=== PATIENT | male | born 1980 | race Caucasian/White ===

== ENCOUNTER 2016-10-14 19:24 | Emergency (ER) | payer SELFPAY ==
[2016-10-14 19:32] VITALS: BP 149/93
[2016-10-14] MEDS ORDERED: Albuterol/Ipratropium NEB.SOL* Albuterol 2.5 MG/Ipratropium 0.5 MG 3 ML INH ONE (20:25)
--- NOTE | 2016-10-14 21:12 | RAD ---
HISTORY: Productive cough COMPARISONS: None VIEWS: 2: Frontal dual-energy and lateral views of the chest. FINDINGS: CARDIOMEDIASTINAL SILHOUETTE: The cardiomediastinal silhouette is normal. DEX: The dex are normal. PLEURA: The costophrenic angles are sharp. No pleural abnormalities are noted. LUNG PARENCHYMA: The lungs are clear. ABDOMEN: The upper abdomen is clear. There is no subphrenic gas. BONES AND SOFT TISSUES: No bone or soft tissue abnormalities are noted. OTHER: None. IMPRESSION: NO ACTIVE CARDIOPULMONARY DISEASE.
[2016-10-14] MEDS ORDERED: Ibuprofen TAB* 800 MG PO ONE (21:32)
--- NOTE | 2016-10-14 22:10 | ED ---
HPI Cardiac - HPI Summary HPI Summary: Pt here w/ cough x 2 weeks. He developed URI sx over the past few days. Cough has been progressively worsening - associated w/ tight chest, trouble getting a deep breath as chest was tight last night - better today, but still coughing and hurts. He now has fever x 3 days along w/ DEAN, nasal congestion, ST. Has had vomiting from coughing so much after drinking alot of fluids. Loose stools one day last week -better since. Mild lower ab discomfort. Denies neck pain, rash, joint aches - just has generalized fatigue. Has been very stressed with work and pushing through illness. Smokes cigarettes and sometimes marijuana. No h/o asthma, pneumonia. - History of Current Complaint Chief Complaint: EDFluSymptoms Stated Complaint: FLU LIKE SYMPTOMS Time Seen by Provider: 10/14/16 19:40 Hx Obtained From: Patient Pain Intensity: 5 - Allergy/Home Medications Allergies/Adverse Reactions: Allergies Allergy/AdvReac Type Severity Reaction Status Date / Time No Known Allergies Allergy Verified 04/06/16 11:30 PMH/Surg Hx/FS Hx/Imm Hx Previously Healthy: Yes Endocrine/Hematology History: Denies: Hx Diabetes, Autoimmune Disease Cardiovascular History: Denies: Hx Congenital Heart Disease Respiratory History: Denies: Hx Asthma Infectious Disease History: No Infectious Disease History: Denies: Traveled Outside the [place] in Last 30 Days - Family History Known Family History: Positive: None Family History: Brother has Crohn's disease. Grandfather with colon cancer. - Social History Occupation: Employed Full-time Lives: With Family Alcohol Use: Occasionally Substance Use Type: Reports: Marijuana - occasionally Hx Tobacco Use: Yes Smoking Status (MU): Current Every Day Smoker Amount Used/How Often: Just started recently Review of Systems Constitutional: Other - see HPI Eyes: Negative Negative: Photophobia, Blurred Vision, Diplopia, Drainage, Erythema ENT: Other - see HPI Positive: Sore Throat, Ear Ache, Nasal Discharge. Negative: Dental Pain Negative: Chest Pain Positive: Cough - see HPI Gastrointestinal: Other - see HPI Positive: no symptoms reported Musculoskeletal: Negative Skin: Negative Negative: Rash Positive: Headache. Negative: Weakness, Paresthesia, Numbness, Syncope, Slurred Speech Psychological: Normal All Other Systems Reviewed And Are Negative: Yes Physical Exam Triage Information Reviewed: Yes Vital Signs On Initial Exam: Initial Vitals Temp Pulse Resp BP Pulse Ox 98.8 F 93 18 149/93 98 10/14/16 19:26 10/14/16 19:26 10/14/16 19:26 10/14/16 19:26 10/14/16 19:26 Vital Signs Reviewed: Yes Appearance: Positive: Ill-Appearing - appears fatigued w/ mild illness - alert, answering questions w/o difficulty Skin: Positive: Warm - feverish - no rash observed Head/Face: Positive: Normal Head/Face Inspection - sinuses NTTP Eyes: Positive: Normal, EOMI, Conjunctiva Clear. Negative: Conjunctiva Inflammed, Discharge ENT: Positive: Hearing grossly normal, Pharyngeal erythema, Nasal congestion, TMs normal, Other - EAC's w/ mild erythema - no d/c. Negative: Nasal drainage, Tonsillar swelling, Tonsillar exudate Neck: Positive: Supple, Nontender, Enlarged Nodes @ Respiratory/Lung Sounds: Positive: Clear to Auscultation, Breath Sounds Present , Wheezes - very mild. Negative: Decreased Breath Sounds, Rales, Rhonchi, Stridor, Tracheal Deviation Cardiovascular: Positive: Normal, RRR, Pulses are Symmetrical in both Upper and Lower Extremities, S1, S2. Negative: Murmur, Rub Abdomen Description: Positive: No Organomegaly, Soft, Other: - mild TTP over lower ab in general - no rebounding - "sore" Bowel Sounds: Positive: Present Musculoskeletal: Positive: Normal, Strength/ROM Intact Neurological: Positive: Normal, Sensory/Motor Intact, Alert, Oriented to Person Place, Time, CN Intact II-III Psychiatric: Positive: Normal - Erica Coma Scale Coma Scale Total: 15 Diagnostics - Vital Signs Vital Signs Temp Pulse Resp BP Pulse Ox 10/14/16 19:26 98.8 F 93 18 149/93 98 - Laboratory Lab Statement: Any lab studies that have been ordered have been reviewed, and results considered in the medical decision making process. Re-Evaluation - Re-Evaluation First Eval Change: Improved - chest/breathing sx improved s/p duoneb Disposition - Course Course Of Treatment: Pt presents w/ URI sx and cough. CXR neg for pneumonia. H/ o working through illness - suspect he has bronchitis from lack of self care during a viral URI and continues to smoke. Improved w/ duoneb so will continue albuterol at home and zitrhomax to cover resp organisms as his immune system sounds to be struggling d/t lifestyle. Encouraged fluids, rest and f/u w/ PCP if sx persist. Danger s/sx of when to return to ED reviewed. - Diagnoses Provider Diagnoses: Bronchitis, URI (upper respiratory infection) Discharge - Discharge Plan Condition: Stable Disposition: HOME Prescriptions: Albuterol HFA INHALER* [Ventolin HFA Inhaler*] 2 puff INH Q4H PRN #1 mdi PRN Reason: Cough Azithromycin TAB* [Zithromax TAB (Z-NINO) 250 mg #6 tabs] 2 tab PO .TODAY, THEN 1 DAILY #1 nino Patient Education Materials: Upper Respiratory Infection (ED), Acute Bronchitis (ED) Forms: *Work Release Referrals: [facility]ERR[facility] [Outside] No Primary Care Phys,NOPCP [Primary Care Provider] - Additional Instructions: Rest, fluids, ibuprofen alternating with acetaminophen for fever, pain. You may also try: Nasal wash (netti pot) & throat gargle 2 x day with 8 ounces of warm water + 1/ 4 teaspoon of salt Drink 60+ ounces of water daily Sleep 8+ hours per night Avoid Dairy and sugar Hot herbal/decaf tea with lemon & honey Chicken broth (preferably organic, free range chicken) Humidifier in house, but especially near bed at night Try a facial steam with or without eucalyptus essential oil Cough drops Consider taking Vitamin D3 5,000iu and Vitamin C 1,000mg every day during illness Start probiotics in between and after completion of antibiotics (ie. Yogurt and/ or capsules of L. acidophilus, L. bifidus, L. casei, etc - make sure to get these from the refrigerated food section as they are live and active cultures) Follow-up with PCP this week if symptoms persist. If symptoms worsen, return to ED.
== END 2016-10-14 21:52 | disposition home or self-care (01) ==
LOC: ED 19:24
DX: J40 Bronchitis, not specified as acute or chronic (principal); J06.9 Acute upper respiratory infection, unspecified; J02.9 Acute pharyngitis, unspecified; H53.8 Other visual disturbances; R51 Headache
CPT/HCPCS: 71020; 99283; A9270-GY

== ENCOUNTER 2017-12-26 19:08 | Emergency (ER) | payer SELFPAY ==
--- NOTE | 2017-12-26 19:28 | ED ---
Altered Mental Status - HPI Summary HPI Summary: This is scribe Jesus Manuel Green documenting for attending Jhon Stern MD. This patient is a 37 year old M BIBA to [facility] with a chief complaint of a possible heroin overdose since earlier today. The patient rates the pain 4/10 in severity. Patient reports chronic pain in his back and knee, sciatica bilaterally, a plate in my arm that hurts constantly, a splint in his forehead , and broken noses on multiple occasions. He was found at the bottom of a staircase by his family after the overdose, barely breathing. Patient was given Narcan nasally. I, Dr. Stern, personally performed the services described in this documentation as scribed in my presence, and it is both accurate and complete. - History Of Current Complaint Chief Complaint: EDAltMentalStatus Stated Complaint: POSS OVERDOSE Time Seen by Provider: 12/26/17 19:11 Hx Obtained From: Patient Onset/Duration: Still Present Severity Initially: Severe Severity Currently: Mild Aggravating Factor(s): Nothing Alleviating Factor(s): Nothing - Allergies/Home Medications Allergies/Adverse Reactions: Allergies Allergy/AdvReac Type Severity Reaction Status Date / Time No Known Allergies Allergy Verified 04/06/16 11:30 Home Medications: Home Medications NK [No Home Medications Reported] 12/26/17 [History Confirmed 12/26/17] PMH/Surg Hx/FS Hx/Imm Hx Endocrine/Hematology History: Denies: Hx Diabetes Cardiovascular History: Denies: Hx Congenital Heart Disease Respiratory History: Denies: Hx Asthma Infectious Disease History: No Infectious Disease History: Denies: Traveled Outside the [place] in Last 30 Days - Family History Known Family History: Positive: Cardiac Disease, Hypertension, Diabetes, Other - Cancer Family History: Brother has Crohn's disease. Grandfather with colon cancer. - Social History Alcohol Use: Occasionally Substance Use Type: Reports: Marijuana Hx Tobacco Use: Yes Smoking Status (MU): Current Every Day Smoker Amount Used/How Often: Just started recently Review of Systems Negative: Fever Positive: Other - Broken noses from before Positive: Other - Chronic back pain, chronic knee pain, sciatica bilaterally, a plate in my arm that hurts constantly" All Other Systems Reviewed And Are Negative: Yes Physical Exam - Summary Physical Exam Summary: Appearance: Well-appearing, Well-nourished, lying in bed comfortable Skin: Warm, dry, no obvious rash Eyes: sclera anicteric, no conjunctival pallor ENT: mucous membranes moist Neck: deferred Respiratory: No signs of respiratory distress Cardiovascular: Appears well perfused, pulses are nml Abdomen: deferred Musculoskeletal: Moving all 4 extremities without obvious discomfort Neurological: Awake and alert, mentation is normal, speech is fluent and appropriate Psychiatric: affect is normal, does not appear anxious or depressed Triage Information Reviewed: Yes Vital Signs On Initial Exam: Initial Vitals Temp Pulse Resp BP Pulse Ox 98.6 F 116 16 165/115 94 12/26/17 19:10 12/26/17 19:10 12/26/17 19:10 12/26/17 19:10 12/26/17 19:10 Vital Signs Reviewed: Yes Diagnostics - Vital Signs Vital Signs Temp Pulse Resp BP Pulse Ox 12/26/17 19:13 115 19 95 12/26/17 19:10 98.6 F 116 16 165/115 94 - Laboratory Lab Statement: Any lab studies that have been ordered have been reviewed, and results considered in the medical decision making process. Re-Evaluation - Re-Evaluation First Eval Re-Evaluation Time: 19:57 Comment: RN caring for the patient tells me that the patient is now suicidal, and will need a mental health evaluation. Appropriate orders are put in. Disposition will be dependent on mental health evaluation. Altered Mental Statu Course/Dx - Course Course Of Treatment: I attempted to engage the patient in a discussion to work on getting into the REACH clinic, pre-exposure prophylaxis, clean needles, etc. However the patient was not interested in this, continually complaining about his chronic pain, swearing at the copy holder, etc. After several minutes of this, I terminated the interview. - Diagnoses Provider Diagnoses: Heroin overdose Discharge - Sign-Out/Discharge Documenting (check all that apply): Patient Departure - Discharge Plan Condition: Good Disposition: HOME Patient Education Materials: Narcotic Abuse (ED), Opioid Overdose (ED) Referrals: [facility] [Outside] No Primary Care Phys,NOPCP [Primary Care Provider] - - Billing Disposition and Condition Condition: GOOD Disposition: Home
[2017-12-26 20:10] LABS: ABS Basophils 0 10^3/ul (0-0.2); ABS Eosinophils 0.1 10^3/ul (0-0.6); ABS Monocytes 0.3 10^3/ul (0-0.8); ABS Neutrophils 5.2 10^3/ul (1.5-7.7); ABS Nucleated RBC 0 10^3/ul; Eosinophil % 1.3 % (0-6); Hematocrit 47 % (42-52); Hemoglobin 16.1 g/dl (14.0-18.0); Lymphocyte % 14.6 % (25-47); Mean Corpuscular HGB Conc 34 g/dl (31-36); Mean Corpuscular Hemoglobin 30 pg (27-31); Mean Corpuscular Volume 89 fL (80-94); Mean Platelet Volume 8.7 um3 (7.4-10.4); Nucleated Red Blood Cells % 0.2; Platelet Count 161 10^3/ul (150-450); Red Blood Count 5.28 10^6/ul (4.00-5.40); Red Cell Distribution Width 14 % (10.5-15); White Blood Count 6.6 10^3/ul (3.5-10.8)
[2017-12-26 20:38] LABS: EGFR Non-African American 86.1 (>60)
[2017-12-26] MEDS ORDERED: diPHENhydraMINE IV* 50 MG/ML 1 ml VIAL (BENADRYL) ONE (21:21)
[2017-12-26] MEDS ORDERED: Ketorolac INJ* 15 MG/ML 1 ML VIAL ONE (21:21)
[2017-12-27] MEDS ORDERED: Lidocaine PATCH 5%* 1 PATCH TRANSDERM SCH (01:00)
[2017-12-27 02:12] VITALS: BP 124/78
--- NOTE | 2017-12-27 11:01 | ED ---
Progress - Progress Note Progress Note: Patient's labs revealed positive hepatitis C results. Attempted to contact patient however his voice mail box has not been set up yet. Called his person to notify, Jeana Gallegos, his sister. She reports she is on her way from [place] to pick her brother up here in [place] in an effort to provide better support in light of recent events with his heroine OD. Did not give her lab results on the phone just now however she and her brother will call back later today when she has made her way here to [place]. She is aware these results are important and should be discussed sooner than later. States she will call around 15:45 this afternoon. Gave her contact information for the ED. - Consult/PCP Time Called: 00:20 Re-Evaluation - Re-Evaluation First Eval Re-Evaluation Time: 19:57 Comment: RN caring for the patient tells me that the patient is now suicidal, and will need a mental health evaluation. Appropriate orders are put in. Disposition will be dependent on mental health evaluation. Course/Dx - Course Course Of Treatment: I attempted to engage the patient in a discussion to work on getting into the REACH clinic, pre-exposure prophylaxis, clean needles, etc. However the patient was not interested in this, continually complaining about his chronic pain, swearing at the hand coper, etc. After several minutes of this, I terminated the interview. - Diagnoses Provider Diagnoses: Heroin overdose Discharge - Sign-Out/Discharge Documenting (check all that apply): Post-Discharge Follow Up - Discharge Plan Condition: Good Disposition: HOME Patient Education Materials: Narcotic Abuse (ED), Opioid Overdose (ED) Referrals: [facility] [Outside] Korin VALERO,Shamar Carrillo [Medical Doctor] - No Primary Care Phys,NOPCP [Primary Care Provider] - Additional Instructions: Per completion of a mental health evaluation, you are cleared for release and do not require inpatient psychiatric hospitalization at this time. Please go to nearest emergency room or call 911 if safety concerns arise or condition worsens. Recommend that you contact [address] for walk in appointment (prior to 2:30 PM) [phone] Other Important Phone Numbers: [facility]........[phone] Suicide Prevention and Crisis Services........................[phone] [place] Suicide Prevention Lifeline............................111-100-MDEU ( 4536) Alcoholics Anonymous...............................................[phone] [facility]..............[phone] [place] [employer]..............................................[phone] - [facility] Disposition and Condition Condition: GOOD Disposition: Home
[2017-12-27] MEDS ORDERED: Lidocaine Patch REMOVE* 1 NOTE MISC SCH (21:00)
== END 2017-12-27 01:55 | disposition home or self-care (01) ==
LOC: ED 19:08
DX: T40.1X1A Poisoning by heroin, accidental (unintentional), initial encounter (principal); Y92.9 Unspecified place or not applicable; Z72.0 Tobacco use
CPT/HCPCS: 36415; 80053; 80320; 80329; 84443; 85025; 86703; 86803; 87340; 99285; G0480; J1200; J1885

== ENCOUNTER 2018-02-07 21:23 | Inpatient (IN) | payer SELFPAY ==
[~2018-02-07 21:23] MED LIST: Etomidate* 2 MG/ML 20 ML VIAL (40 MG) ONE; Midazolam* 1 MG/ML 10 ML VIAL (10 MG) ONE
[2018-02-07] MEDS ORDERED: Succinylcholine* 20 MG/ML 10 ML VIAL ONE (21:29)
[2018-02-07] MEDS ORDERED: Succinylcholine* 20 MG/ML 10 ML VIAL IV ONE (21:34)
[2018-02-07] MEDS ORDERED: Etomidate* 2 MG/ML 10 ML VIAL IV ONE (21:34)
[2018-02-07] MEDS ORDERED: Midazolam IV for DRIP* 100 MG in NS 0.9% 100 ML* 80 ML IV SCH (21:35)
[2018-02-07] MEDS ORDERED: Midazolam BAG 1 MG/ML* 100 MG/100 ML BAG IV ONE (21:35)
--- NOTE | 2018-02-07 21:42 | ED ---
Altered Mental Status - HPI Summary HPI Summary: This patient is a 38 year old male BIBA to [facility] with a chief complaint of AMS, and vomiting since arrival by EMS. Patient was found by a female creative resource manager at home unresponsive. The downtime of patient is unknown. As he has a history of heroin abuse, patient was given 6.4g of narcan with no improvement. EMS states that during transit, his pupils were dilated and minimally reactive and was hypertensive, tachycardic. Patient was unable to vocalize and only grunted and groaned. - History Of Current Complaint Chief Complaint: EDAltMentalStatus Stated Complaint: POSS OVERDOSE Time Seen by Provider: 02/07/18 21:33 Hx Obtained From: EMS Hx From Patient Unobtainable Due To: Altered Mental Status Onset/Duration: Still Present Timing: Constant Severity Currently: Moderate Character: Lethargy Aggravating Factor(s): Nothing Alleviating Factor(s): Nothing Associated Signs And Symptoms: Positive: Vomiting - Allergies/Home Medications Allergies/Adverse Reactions: Allergies Allergy/AdvReac Type Severity Reaction Status Date / Time No Known Allergies Allergy Verified 04/06/16 11:30 PMH/Surg Hx/FS Hx/Imm Hx Previously Healthy: Yes - Level 5 Caveat: AMS Endocrine/Hematology History: Denies: Hx Diabetes Cardiovascular History: Denies: Hx Congenital Heart Disease Respiratory History: Denies: Hx Asthma - Family History Known Family History: Positive: Cardiac Disease, Hypertension, Diabetes, Other - Cancer Family History: Brother has Crohn's disease. Grandfather with colon cancer. - Social History Alcohol Use: Occasionally Hx Substance Use: Yes Substance Use Type: Reports: Marijuana Hx Tobacco Use: Yes Smoking Status (MU): Current Every Day Smoker Amount Used/How Often: Just started recently Review of Systems Negative: Fever Positive: Palpitations Positive: Vomiting All Other Systems Reviewed And Are Negative: No - Comments Additional Review of Systems Comments: Level 5 Caveat: AMS Physical Exam Triage Information Reviewed: No Vital Signs Reviewed: No Completion Of Physical Exam Limited Due To: Altered Mental Status, Level 5 Procedures - Intubation Time of Intubation: 21:30 - Patient was vomiting and suction prior intubation. No emesis around cords Intubation Method: orotracheal Tube Size (cm): 8.0 Medications: Succinylcholine Breath Sounds after Intubation: equal Intubation Complications: no complications Post Intubation Xray: Yes Progress/Xray Impression: NAD, ET tube in position Diagnostics - Laboratory Result Diagrams: 02/07/18 21:49 02/07/18 21:49 Lab Statement: Any lab studies that have been ordered have been reviewed, and results considered in the medical decision making process. - Radiology CXR Xray Interpretation: No Acute Changes - CXR reveals NAD, ET tube in position. ED physician has reviewed this radiology report. Radiology Interpretation Completed By: ED Physician - EKG 2152 Cardiac Rate: Tachycardia EKG Rhythm: Sinus Tachycardia - 116 BPM EKG Interpretation: Sinus Tachycardia (116 BPM), ST early repolarization Altered Mental Statu Course/Dx - Course Assessment/Plan: This patient is a 38 year old male BIBA to [facility] with a chief complaint of AMS, and vomiting since arrival by EMS. Patient was found by a female creative resource manager at home unresponsive. An EKG, taken 2152, reveals Sinus Tachycardia (116 BPM), ST early repolarization.CXR reveals, per radiologist, NAD , ET tube in position. ED physician has reviewed this radiology report. Bloodwork Obtained. Urinalysis Obtained. In the ED course the patient was given Etomidate 20mg IV, NS 0.9% bolus IV, Succinylcholine 100mg IV. We discussed patient care with Yonny Savage (Hospitalist) and they recommended admitting patient to ICU. Patient will be admitted to ICU. The patient is agreeable with this plan. - Diagnoses Differential Diagnosis/HQI/PQRI: CVA, Hypoglycemia, Hypoxia, Intoxication, Intracranial Bleed, Overdose, Postictal State, Sepsis Provider Diagnoses: Altered mental status, Vomiting, Drug ingestion, Alcohol intoxication - Provider Notifications Discussed Care Of Patient With: Yonny Savage - Hospitalist Time Discussed With Above Provider: 21:45 - We discussed patient care with Yonny Savage (Hospitalist) and they recommended admitting patient to ICU. Instructed by Provider To: Other - admit to ICU - Critical Care Time Critical Care Time: 30-74 min - Patient with acutely altered mental status requiring airway management, IV fluids, and heavy sedation. Discharge - Sign-Out/Discharge Documenting (check all that apply): Patient Departure - Discharge Plan Condition: Critical Disposition: ADMITTED TO [facility] Referrals: No Primary Care Phys,NOPCP [Primary Care Provider] - - Attestation Statements Document Initiated by Scribe: Yes Documenting Scribe: Aniyah Miller Provider For Whom Scribe is Documenting (Include Credential): Jhon Stern MD Scribe Attestation: Aniyah Frausto, scribed for Jhon Stern MD on 02/08/18 at 0004.
[2018-02-07] MEDS: NS 0.9% 1000 ML* 2,000 ML IV ONE ×3 (21:55→22:55)
[2018-02-07 21:57] LABS: ABS Basophils 0 10^3/ul (0-0.2); ABS Eosinophils 0.2 10^3/ul (0-0.6); ABS Lymphocytes 4.7 10^3/ul (1.0-4.8); ABS Neutrophils 4.8 10^3/ul (1.5-7.7); ABS Nucleated RBC 0 10^3/ul; Hematocrit 48 % (42-52); Hemoglobin 16.3 g/dl (14.0-18.0); Lymphocyte % 43.4 % (25-47); Mean Corpuscular HGB Conc 34 g/dl (31-36); Mean Corpuscular Hemoglobin 31 pg (27-31); Mean Corpuscular Volume 91 fL (80-94); Mean Platelet Volume 8.3 um3 (7.4-10.4); Nucleated Red Blood Cells % 0.2; Platelet Count 199 10^3/ul (150-450); Red Blood Count 5.28 10^6/ul (4.00-5.40); Red Cell Distribution Width 16 % (10.5-15); White Blood Count 10.8 10^3/ul (3.5-10.8)
[2018-02-07 22:13] LABS: EGFR Non-African American 92.1 (>60)
[2018-02-07 22:14] LABS: Urine Appearance Cloudy; Urine Blood 1+ (Negative); Urine Color Yellow; Urine Ketones Negative (Negative); Urine Protein 2+(100 mg/dL) (Negative); Urine Red Blood Cell 3+(>10/hpf) (Absent); Urine Specific Gravity 1.011 (1.010-1.030); Urine Urobilinogen Negative (Negative); Urine White Blood Cell Trace(0-5/hpf) (Absent)
--- NOTE | 2018-02-07 22:28 | RAD ---
EXAM: CT Head Without Intravenous Contrast CLINICAL HISTORY: 38 years old, male; Signs and symptoms; Other: Possible overdose/ams; Additional info: Altered mental status TECHNIQUE: Axial computed tomography images of the head/brain without intravenous contrast. All CT scans at this facility use at least one of these dose optimization techniques: automated exposure control; mA and/or kV adjustment per patient size (includes targeted exams where dose is matched to clinical indication); or iterative reconstruction. COMPARISON: No relevant prior studies available. FINDINGS: Brain: No evidence of acute intracranial hemorrhage. No intracranial mass or mass effect. The appearance of the ness matter and white matter are normal. Ventricles: Unremarkable. No ventriculomegaly. Bones/joints: Unremarkable. No acute fracture. Soft tissues: Unremarkable. Sinuses: Unremarkable as visualized. No acute sinusitis. Mastoid air cells: Unremarkable as visualized. No mastoid effusion. IMPRESSION: No acute findings.
[2018-02-07] MEDS ORDERED: NS 0.9% 1000 ML* 2,000 ML IV ONE (22:39)
[2018-02-07] MEDS ORDERED: Propofol* 100 ML ONE (22:48)
[2018-02-07] MEDS: Propofol* 100 ML IV SCH (22:50)
[2018-02-07] MEDS ORDERED: Ondansetron INJ* 2 MG/ML VIAL IV PRN (23:00)
[2018-02-07] MEDS ORDERED: Thiamine IV 100 MG, Folic Acid IV* 1 MG, Multiple Vitamin IV ADULT* 10 ML in NS 0.9% 10... IV ONE (23:05)
[2018-02-08] MEDS: NS 0.9% 1000 ML* 1,000 ML IV SCH ×2 (01:03→08:29)
[2018-02-08 01:31] LABS: Hematocrit 40 % (42-52); Hemoglobin 13.8 g/dl (14.0-18.0)
[2018-02-08] MEDS: Propofol* 100 ML IV SCH ×3 (02:16→08:25)
--- NOTE | 2018-02-08 03:46 | HP ---
CC: Dr. Michael * HISTORY AND PHYSICAL: DATE OF ADMISSION: 02/07/18 PRIMARY CARE PROVIDER: Unknown. ATTENDING PHYSICIAN WHILE IN THE HOSPITAL: Ros Gray DO * (report dictated by Yonny Savage NP). CONSULTING RN TELEPHONE TRIAGE: Dr. Michael. CHIEF COMPLAINT: Altered mental status. HISTORY OF PRESENT ILLNESS: With the preface of the report by saying that the patient is intubated and sedated on midazolam drip. He is really unable to give any history. Most of the history is obtained from discussion with nursing staff, in addition to this also reading EMS reports. Apparently, the patient was found down today by his girlfriend. She called 911. It was unclear if this was an overdose. He was given 6 mg of Narcan. He came into the ER. He was vomiting profusely. He was intubated for airway protection and given his altered mental status, he does have notable track guillermo on his arms. It was presumed an overdose and there was no other history given by family as they are not present. It is noted that because of this and the fact that he had a significant amount of altered mental status requiring intubation, we were asked to evaluate for admission. PAST MEDICAL HISTORY: According to the old records include: 1. Anxiety. 2. Insomnia. 3. Chronic back pain. PAST SURGICAL HISTORY: Unable to be obtained. HOME MEDICATIONS: Unable to be obtained. ALLERGIES TO MEDICATION: Unable to be obtained. FAMILY HISTORY: Unable to be obtained. SOCIAL HISTORY: Unable to be obtained. REVIEW OF SYSTEMS: Unable to be obtained. PHYSICAL EXAMINATION GENERAL: At this time, Mr. Gallegos is a 38-year-old male patient, who appears to be well nourished, well developed, does not appear to be in any acute distress. VITAL SIGNS: Initially when he presented, he had a blood pressure of 153/111 with pulse of 129, respirations were 24, O2 saturations were 96%. When he was intubated, his O2 sats were 100%. His heart rate had come down to the one teens. Respirations were 18 and his blood pressure was 123/73. HEENT: Head: Atraumatic, normocephalic. Eyes: Pupils are equal and reactive to light. Sclerae are anicteric, not pale. Throat: Oral mucosa appears to be moist. No oropharyngeal erythema. NECK: Supple. LUNGS: Clear. HEART: Sounds S1, S2. He had a regular rate and rhythm. No murmurs, rubs, or gallops. ABDOMEN: Soft, flat, and nontender. Bowel sounds were present. EXTREMITIES: Pulses were 2+ throughout. He will withdraw his upper extremities to pain with rolling a pen over his nail beds. NEUROLOGIC: He has corneal reflexes. Cough and gag reflexes are intact. Pupils are equal and reactive to light. He will respond to pain but against limited exam as he did receive succinylcholine and etomidate prior to intubation. SKIN: Intact. DIAGNOSTIC STUDIES/LAB DATA: WBC of 10.8, RBC of 5.28, hemoglobin 16.2, hematocrit of 48, platelet count of 199. Blood gas, pH of 7.35, pCO2 of 45, bicarb of 21. Sodium was 137, potassium 3.9, chloride of 102, bicarb 20, BUN 14 , creatinine of 0.92, glucose 205, lactate 4.8, calcium 8.6, total bili 0.4, AST 68, ALT 54, alk phos 91. CK pending. Troponin 0. Albumin of 4.6. Prolactin pending. Urine showed 1+ blood, 2+ rbc. Toxicology had negative Tylenol level but serum alcohol level was 253. Urine toxicology is pending. He had a CT of the brain, impression was normal. Chest x-ray, there is a question that he may have left upper lobe infiltrate, otherwise his costophrenic angles were clear. Normal heart silhouette and he has ET tube in place just above the ramakrishna. In addition to this, he has an OG tube, which is down below the diaphragm and in the stomach. Old medical records were reviewed. He did have an EKG obtained today as well showing a sinus tachycardia with LVH. No ST elevation or T-wave inversion noted. ASSESSMENT AND PLAN: Mr. Gallegos is a 38-year-old male patient coming into the emergency department today with altered mental status of unclear etiology. We were asked to evaluate for admission. He will be admitted under inpatient status for: 1. Altered mental status. This is probably secondary to overdose, although it is unclear. There are no family members present to corroborate the story as to what happened, but it was noted that he has track cut guillermo on his arms. The plan is to leave the patient intubated and sedated at a RASS of -2, propofol overnight. CT brain again was negative. I will go ahead and get neuro checks every hour. In addition to this, Dr. Michael, will be evaluating the patient tomorrow. We will continue him on assist control ventilation for the time being and we will continue oral cares per provided. We will go ahead and again wait for drug tox screening. I do note the . I will check the CPK. In addition to the prolactin, seizures in the differential and will continue to monitor. If he does not continue to improve, consider getting further imaging of the brain such as an MRI possibly getting neurology involved but again we will await morning. We will stop propofol in the morning for sedation holiday and see how the patient responds. 2. Lactic acidosis, etiology is unclear, possible seizure. I am going to go ahead and repeat this. I will panculture him and will continue to monitor. Again we will panculture him. I am giving him 2 L of fluid wide open. We will continue to monitor. 3. Alcoholism. I will order a banana bag and may need to consider ordering WAM protocol after he is extubated and off propofol drip depending on what he is able to tell us and how often he does drink, but unfortunately, he is unable to give that information currently. 4. Deep vein thrombosis prophylaxis. He is high risk. I have ordered heparin subcutaneous. 5. GI prophylaxis. I have ordered Pepcid. I do note that he does have some blood coming out of his NG tube, which may be secondary to the recent intubation. We will monitor this. I will get a hemoglobin and H and H later tonight to evaluate to make sure he is not dropping. If he is, we will certainly have a low threshold for starting a PPI drip and getting touch base with GI. 6. Code status. Full code. 7. Fluid, electrolyte, nutrition. He is n.p.o. TIME SPENT ON THE ADMISSION: Critical care time spent was approximately 70 minutes, greater than half the time was spent [id number] with the patient, obtaining my history and physical, other half time spent going over the plan of care with the patient and implementing the plan of care. I discussed the plan of care with my attending, Dr. Gray. I also discussed the plan of care with epic cadence specialists, Dr. Michael, who is in agreement. YONNY SAVAGE, SCIENCES DEAN [id number]/[facility] #: [id number] [facility] CENTERGerman
[2018-02-08] MEDS ORDERED: Midazolam* 1 MG/ML 2 ML VIAL (2 MG) IV SLOW PU PRN (05:55)
[2018-02-08] MEDS ORDERED: Midazolam* 1 MG/ML 2 ML VIAL (2 MG) ONE (05:57)
[2018-02-08] MEDS ORDERED: Heparin VIAL(*) 5000 UNITS/ML VIAL (FIVE THOUSAND) SUBCUT SCH (06:00)
[2018-02-08 06:08] LABS: ABS Basophils 0 10^3/ul (0-0.2); ABS Eosinophils 0.1 10^3/ul (0-0.6); ABS Lymphocytes 1.6 10^3/ul (1.0-4.8); ABS Monocytes 0.8 10^3/ul (0-0.8); ABS Neutrophils 4.4 10^3/ul (1.5-7.7); ABS Nucleated RBC 0 10^3/ul; Eosinophil % 1.1 % (0-6); Hematocrit 40 % (42-52); Hemoglobin 13.5 g/dl (14.0-18.0); Mean Corpuscular HGB Conc 34 g/dl (31-36); Mean Corpuscular Hemoglobin 31 pg (27-31); Mean Corpuscular Volume 90 fL (80-94); Mean Platelet Volume 8.2 um3 (7.4-10.4); Nucleated Red Blood Cells % 0.1; Platelet Count 139 10^3/ul (150-450); Red Cell Distribution Width 15 % (10.5-15); White Blood Count 6.8 10^3/ul (3.5-10.8)
[2018-02-08 06:22] LABS: EGFR Non-African American 126.2 (>60)
[2018-02-08] MEDS ORDERED: Famotidine IV * 20 MG in NS 0.9% 100 ML* 100 ML IVPB SCH (09:00)
[2018-02-08] MEDS ORDERED: Famotidine IV* 10 MG/ML 2 ML (20 mg) IV SLOW PU SCH (09:00)
[2018-02-08 13:03] VITALS: BP 162/103
--- NOTE | 2018-02-08 15:02 | RAD ---
INDICATION: Intubation and gastric tube placement COMPARISON: Chest x-ray dated October 14, 2016 TECHNIQUE: Single AP portable view of the chest was obtained. FINDINGS: Image quality is compromised due to the relative inferiority of a portable chest x-ray. There is been interval placement of an endotracheal tube with the tip terminating 5.3 cm above the ramakrishna. The gastric tube descend below the level the diaphragm overlying the expected location of the gastric fundus with the tip terminating at the fracture location of the gastric antrum. The heart and mediastinum exhibit normal size and contour. The lungs are grossly clear. There is no evidence of a large pleural effusion. Visualized bones are normal for the patient's age. IMPRESSION: Appropriately positioned endotracheal and gastric tubes as described above. R0
--- NOTE | 2018-02-09 04:28 | DS ---
DISCHARGE SUMMARY: DATE OF ADMISSION: 02/07/18. DATE OF DISCHARGE: 02/08/18. HISTORY OF PRESENT ILLNESS: The patient is a 38-year-old white male with a history of drug abuse who was admitted with an overdose of alcohol, cocaine and opioids and was initially intubated, subsequently woke up, was extubated and was able to eat lunch and was ambulating without difficulty. Denies suicide intent. This patient has been counseled several times about drug abuse and he continues to use drugs, so the prognosis is poor in this case. FINAL DIAGNOSIS: Intentional drug overdose without suicide ideation. MANAGEMENT PLAN: Patient will be discharged home with information about drug abuse, and has been encouraged to seek rehab program for his drug indiscretions. [id number]/[facility] #: [id number] [place]
== END 2018-02-08 14:45 | disposition home or self-care (01) | DRG 918 ==
LOC: ED 21:23 → ICU 22:36
PROVIDERS: ADMIT Nurse Practitioner Family; ATTEND Internal Medicine Critical Care Medicine
PROC: 0BH17EZ Insertion of Endotracheal Airway into Trachea, Via Natural or Artificial Opening (ICD-10-PCS; principal; 2018-02-07)
PROC: 5A1935Z Respiratory Ventilation, Less than 24 Consecutive Hours (ICD-10-PCS; 2018-02-07)
DX: T40.5X2A Poisoning by cocaine, intentional self-harm, initial encounter (principal); E87.2 Acidosis; T40.2X2A Poisoning by other opioids, intentional self-harm, initial encounter; T51.92XA Toxic effect of unspecified alcohol, intentional self-harm, initial encounter; Y92.9 Unspecified place or not applicable; F11.10 Opioid abuse, uncomplicated; F14.10 Cocaine abuse, uncomplicated; F10.20 Alcohol dependence, uncomplicated; F41.9 Anxiety disorder, unspecified; G47.00 Insomnia, unspecified; M54.9 Dorsalgia, unspecified; Y90.8 Blood alcohol level of 240 mg/100 ml or more
CPT/HCPCS: 36415; 70450; 71045; 80048; 80053; 80307; 80320; 80329; 81003; 81015; 82550; 82803; 83605; 84145; 84146; 84484; 85014; 85018; 85025; 87086; 87641; 93005; 94003; 99285; G0480; J0330; J1644; J2250; J2704; J3411

== ENCOUNTER 2019-02-28 16:51 | Emergency (ER) | payer OTHER ==
[2019-02-28] MEDS ORDERED: Cephalexin CAP* 500 MG PO ONE (17:49)
[2019-02-28] MEDS ORDERED: Sulfamethox/Trimethoprim DS 800/160* TAB PO ONE (17:49)
--- NOTE | 2019-02-28 18:13 | ED ---
Skin Complaint - HPI Summary HPI Summary: Patient complains of redness and swelling and purulent discharge on right wrist starting 2 days ago, with increase in symptoms today. Also states redness spreading from wrist up to medial bicep. Denies any other pain, injury or symptoms. Medical history is hep C. Denies active IV drug use, admits to former IV drug use. - History of Current Complaint Chief Complaint: EDRashSkinAbscess Time Seen by Provider: 02/28/19 17:31 Stated Complaint: RIGHT HAND INFECTION PER PATIENT Hx Obtained From: Patient Onset/Duration: Started Days Ago Skin Exposure Onset/Duration: Days Ago Timing: Lasting Days Onset Severity: Moderate Current Severity: Moderate Pain Intensity: 5 Pain Scale Used: 0-10 Numeric Skin Location: Discrete Aggravating Symptom(s): Touch Alleviating Symptom(s): Nothing Associated Signs & Symptoms: Drainage - Additional Pertinent History Primary Care Physician: [id number] - Allergy/Home Medications Allergies/Adverse Reactions: Allergies Allergy/AdvReac Type Severity Reaction Status Date / Time No Known Allergies Allergy Verified 02/28/19 16:55 PMH/Surg Hx/FS Hx/Imm Hx Endocrine/Hematology History: Denies: Hx Diabetes Cardiovascular History: Denies: Hx Congenital Heart Disease, Hx Pacemaker/ICD Respiratory History: Denies: Hx Asthma History: Denies: Hx Renal Disease Musculoskeletal History: Reports: Hx Back Problems - Back pain Sensory History: Denies: Hx Contacts or Glasses, Hx Hearing Aid Opthamlomology History: Denies: Hx Contacts or Glasses Psychiatric History: Reports: Hx Anxiety, Hx Depression, Hx Panic Disorder - MILD ANXIETY, Hx of Violent Episodes Against Others, Hx Substance Abuse - Surgical History Surgery Procedure, Year, and Place: LEFT ARM HARDWARE. DEVIATED SEPTUM Hx Anesthesia Reactions: No Infectious Disease History: No Infectious Disease History: Denies: Traveled Outside the [place] in Last 30 Days - Family History Known Family History: Positive: Cardiac Disease, Hypertension, Diabetes, Other - Cancer Family History: Brother has Crohn's disease. Grandfather with colon cancer. - Social History Alcohol Use: Occasionally Hx Substance Use: Yes Substance Use Type: Reports: Marijuana Hx Tobacco Use: Yes Smoking Status (MU): Current Every Day Smoker Amount Used/How Often: Just started recently Review of Systems Constitutional: Negative Eyes: Negative ENT: Negative Cardiovascular: Negative Respiratory: Negative Gastrointestinal: Negative Genitourinary: Negative Musculoskeletal: Negative Skin: Other Neurological: Negative Psychological: Normal All Other Systems Reviewed And Are Negative: Yes Physical Exam - Summary Physical Exam Summary: Small 3 x 3 abscess on medial right wrist just proximal to the joint. Normal range of motion of right wrist. PMS intact distally. Erythema extending from right wrist along medial forearm elbow and bicep area normal range of motion of right elbow. Triage Information Reviewed: Yes Vital Signs On Initial Exam: Initial Vitals Temp Pulse Resp BP Pulse Ox 97.8 F 97 16 157/94 97 02/28/19 16:53 02/28/19 16:53 02/28/19 16:53 02/28/19 16:53 02/28/19 16:53 Vital Signs Reviewed: Yes Appearance: Positive: Well-Appearing Skin: Positive: Warm Head/Face: Positive: Normal Head/Face Inspection Eyes: Positive: Normal Neck: Positive: Supple Respiratory/Lung Sounds: Positive: Clear to Auscultation Cardiovascular: Positive: Normal Abdomen Description: Positive: Nontender Musculoskeletal: Positive: Normal Neurological: Positive: Normal Psychiatric: Positive: Normal AVPU Assessment: Alert - Erica Coma Scale Best Eye Response: 4 - Spontaneous Best Motor Response: 6 - Obeys Commands Best Verbal Response: 5 - Oriented Coma Scale Total: 15 Procedures - Sedation Patient Received Moderate/Deep Sedation with Procedure: No - Incision and Drainage 1 Site: medial right wrist Anesthesia: Topical, Lidocaine Instrument(s): Scalpel Diagnostics - Vital Signs Vital Signs Temp Pulse Resp BP Pulse Ox 02/28/19 16:53 97.8 F 97 16 157/94 97 - Laboratory Lab Statement: Any lab studies that have been ordered have been reviewed, and results considered in the medical decision making process. Course/Dx - Course Course Of Treatment: Patient complains of redness and swelling and purulent discharge on right wrist starting 2 days ago, with increase in symptoms today. Also states redness spreading from wrist up to medial bicep. Denies any other pain, injury or symptoms. Medical history is hep C. Denies active IV drug use , admits to former IV drug use. Vital signs within normal limits. I&D of abscess with positive purulent drainage. Rx for Keflex and Bactrim. - Diagnoses Provider Diagnoses: Abscess Discharge ED - Sign-Out/Discharge Documenting (check all that apply): Patient Departure - Discharge Plan Condition: Stable Disposition: HOME Prescriptions: Cephalexin CAP* [Keflex CAP*] 500 mg PO QID 7 Days #28 cap Sulfamethox/Trimethoprim DS* [Bactrim DS 800/160 TAB*] 1 tab PO BID 10 Days #20 tab Patient Education Materials: Abscess (ED) Referrals: No Primary Care Phys,NOPCP [Primary Care Provider] - Additional Instructions: Take antibiotics as directed. Use warm compresses or warm running water to help drain. Keep incision open to facilitate draining. Return to the ED for any worsening symptoms. - Billing Disposition and Condition Condition: STABLE Disposition: Home
[2019-02-28 18:40] VITALS: BP 148/90
== END 2019-02-28 18:39 | disposition home or self-care (01) ==
LOC: ED 16:51
DX: L02.413 Cutaneous abscess of right upper limb (principal); F17.210 Nicotine dependence, cigarettes, uncomplicated; F41.9 Anxiety disorder, unspecified; Z86.19 Personal history of other infectious and parasitic diseases
CPT/HCPCS: 10060; 87070; 87077; 87186; 87205; 87640; 87641; 99283; A9270-GY

== ENCOUNTER 2019-12-21 16:11 | Inpatient (IN) ==
[2019-12-21] MEDS ORDERED: cefTRIAXone 2 GM ADDV.VIAL 2 GM in NS 0.9% 100 ml BAG 100 ML IVPB ONE (16:49)
[2019-12-21] MEDS ORDERED: NS 0.9% 1000 ml BAG 1,000 ML IV.FLUID IV ONE (16:49)
[2019-12-21] MEDS ORDERED: Vancomycin 1,500 MG in NS 0.9% 250 ml 250 ML IVPB ONE (17:00)
[2019-12-21 17:27] LABS: ABS Eosinophils 0.3 10^3/ul (0-0.6); ABS Lymphocytes 1.3 10^3/ul (1.0-4.8); ABS Monocytes 1.5 10^3/ul (0-0.8); ABS Neutrophils 11.4 10^3/ul (1.5-7.7); Hematocrit 41 % (42-52); Hemoglobin 13.8 g/dL (14.0-18.0); Lymphocyte % 9.1 %; Mean Corpuscular HGB Conc 34 g/dL (31-36); Mean Corpuscular Hemoglobin 29 pg (27-31); Mean Corpuscular Volume 86 fL (80-94); Mean Platelet Volume 7.9 fL (7.4-10.4); Platelet Count 291 10^3/uL (150-450); Red Blood Count 4.73 10^6 /uL (4.18-5.48); Red Cell Distribution Width 15 % (10-15); White Blood Count 14.6 10^3/uL (3.5-10.8)
[2019-12-21 17:43] LABS: INR 1.41 (0.82-1.09)
[2019-12-21 17:47] LABS: Albumin 3.4 g/dL (3.2-5.2); Albumin/Globulin Ratio 0.9 (1-3); BUN/Creatinine Ratio 14.5 (8-20); C Reactive Protein 208.97 mg/L (<8.01); Calcium 8.8 mg/dL (8.6-10.3); EGFR African American 154.5 (>60); EGFR Non-African American 127.6 (>60); Potassium 3.5 mmol/L (3.5-5.0); Total Bilirubin 0.2 mg/dL (0.2-1.0); Total Protein 7.4 g/dL (6.4-8.9)
[2019-12-21] MEDS ORDERED: Succinylcholine 200 mg VIAL 20 mg/ml 10 ml VIAL (200 mg) ONE (19:41)
[2019-12-21] MEDS ORDERED: Ondansetron 4 mg VIAL 2 MG/ML 2 ml VIAL ONE (19:41)
[2019-12-21] MEDS ORDERED: Dexamethasone IV 4 MG/ML VIAL 1 ml VIAL ONE (19:41)
[2019-12-21] MEDS ORDERED: EPHEDrine (Pressors) 50 MG/ML VIAL ONE (19:41)
[2019-12-21] MEDS ORDERED: Rocuronium 50 mg VIAL 10 mg/ml 5 ml VIAL (50 mg) ONE (19:41)
[2019-12-21] MEDS ORDERED: Acetaminophen IV 1 GM/100ML 100 ML ONE (19:41)
[2019-12-21] MEDS ORDERED: Propofol 10 MG/ML 20 ML BTL ONE (19:41)
[2019-12-21] MEDS ORDERED: fentaNYL 250 mcg/5 ml 50 MCG/ML 5 ml VIAL (250 MCG) ONE ×2 (19:42→21:59)
[2019-12-21] MEDS ORDERED: Midazolam 2 mg/2 ml VIAL 1 mg/ml 2 ml VIAL (2 mg) ONE (19:43)
[2019-12-21] MEDS ORDERED: NS 0.9% 1000 ml BAG 1,000 ML IV ONE (20:02)
[2019-12-21] MEDS ORDERED: HYDROmorphone 1 MG/1 ML SYRINGE IV PRN (20:07)
[2019-12-21] MEDS ORDERED: diPHENhydraMINE IV 50 MG/ML 1 ml VIAL (BENADRYL) IV PRN (20:07)
[2019-12-21] MEDS ORDERED: Prochlorperazine 5 mg/ml 2 ml VIAL (10 mg) IV PRN (20:07)
[2019-12-21] MEDS ORDERED: Naloxone 0.4 mg VIAL 0.4 mg/ml 1 ml VIAL IV PRN (20:07)
[2019-12-21] MEDS ORDERED: NS 0.9% 1000 ml BAG 1,000 ML IV SCH (21:15)
[2019-12-21] MEDS ORDERED: Vancomycin per Pharmacy 1 EA NOTE FOLLOW UP SCH (22:00)
[2019-12-22] MEDS: Cefepime 2 GM in Dextrose 2 GM/50 ML BAG IV SCH ×2 (00:55→13:16)
[2019-12-22] MEDS: metroNIDAZOLE IV 500 MG/100ML 500 MG/100 ML BAG IVPB SCH ×2 (01:45→09:25)
[2019-12-22] MEDS: Vancomycin 1,250 MG in NS 0.9% 250 ml 250 ML IVPB SCH ×3 (03:12→18:53)
[2019-12-22 04:54] LABS: ABS Lymphocytes 0.6 10^3/ul (1.0-4.8); ABS Monocytes 0.4 10^3/ul (0-0.8); ABS Neutrophils 14.9 10^3/ul (1.5-7.7); Hematocrit 36 % (42-52); Lymphocyte % 3.9 %; Mean Corpuscular HGB Conc 34 g/dL (31-36); Mean Corpuscular Hemoglobin 29 pg (27-31); Mean Corpuscular Volume 86 fL (80-94); Mean Platelet Volume 7.8 fL (7.4-10.4); Platelet Count 283 10^3/uL (150-450); Red Blood Count 4.13 10^6 /uL (4.18-5.48); Red Cell Distribution Width 15 % (10-15); White Blood Count 15.9 10^3/uL (3.5-10.8)
[2019-12-22 05:25] LABS: BUN/Creatinine Ratio 12.3 (8-20); Calcium 7.8 mg/dL (8.6-10.3); EGFR African American 144.7 (>60); EGFR Non-African American 119.6 (>60); Potassium 4.1 mmol/L (3.5-5.0)
[2019-12-22] MEDS: Nicotine PATCH 14 MG/24 HR PATCH TRANSDERM SCH (12:24)
[2019-12-22] MEDS ORDERED: Buprenorp/Nalox 8-2 MG FILM SL FILM SCH (15:00)
[2019-12-22] MEDS ORDERED: Vancomycin Trough Check NOTE FOLLOW UP ONE (17:30)
[2019-12-22 18:05] LABS: EGFR African American 159.8 (>60); EGFR Non-African American 132.1 (>60)
[2019-12-22 18:37] LABS: Vancomycin Trough 9.5 mcg/mL
[2019-12-22] MEDS: Vancomycin 1500 MG IV - Q8H IVPB SCH (18:49)
[2019-12-23] MEDS: Cefepime 2 GM in Dextrose 2 GM/50 ML BAG IV SCH ×2 (00:31→13:18)
[2019-12-23] MEDS: Vancomycin 1500 MG IV - Q8H IVPB SCH ×3 (02:43→18:07)
[2019-12-23 06:25] LABS: Hematocrit 34 % (42-52); Hemoglobin 11.6 g/dL (14.0-18.0); Mean Corpuscular HGB Conc 34 g/dL (31-36); Mean Corpuscular Hemoglobin 29 pg (27-31); Mean Corpuscular Volume 86 fL (80-94); Mean Platelet Volume 7.7 fL (7.4-10.4); Platelet Count 298 10^3/uL (150-450); Red Blood Count 3.95 10^6 /uL (4.18-5.48); Red Cell Distribution Width 15 % (10-15); White Blood Count 16.2 10^3/uL (3.5-10.8)
[2019-12-23 06:44] LABS: BUN/Creatinine Ratio 16.1 (8-20); EGFR African American 174.7 (>60); EGFR Non-African American 144.4 (>60)
[2019-12-23 07:31] LABS: Potassium 4.1 mmol/L (3.5-5.0)
[2019-12-23] MEDS: Nicotine PATCH 14 MG/24 HR PATCH TRANSDERM SCH (08:49)
[2019-12-23] MEDS ORDERED: Morphine 2 MG/ML SYRINGE IV ONE (09:27)
[2019-12-23] MEDS ORDERED: Morphine 2 MG/ML SYRINGE IV PRN (09:46)
[2019-12-23] MEDS ORDERED: Buprenorp/Nalox 2-0.5 mg SL TB SL ONE (21:16)
[2019-12-23] MEDS: Morphine ER 30 mg TAB ** extended release PO SCH (22:13)
[2019-12-24] MEDS: Cefepime 2 GM in Dextrose 2 GM/50 ML BAG IV SCH ×2 (00:40→12:58)
[2019-12-24] MEDS: Vancomycin 1500 MG IV - Q8H IVPB SCH ×2 (02:44→10:40)
[2019-12-24 05:18] LABS: Hematocrit 37 % (42-52); Hemoglobin 12.6 g/dL (14.0-18.0); Mean Corpuscular HGB Conc 34 g/dL (31-36); Mean Corpuscular Hemoglobin 29 pg (27-31); Mean Corpuscular Volume 86 fL (80-94); Mean Platelet Volume 7.1 fL (7.4-10.4); Platelet Count 337 10^3/uL (150-450); Red Blood Count 4.33 10^6 /uL (4.18-5.48); Red Cell Distribution Width 15 % (10-15); White Blood Count 8.5 10^3/uL (3.5-10.8)
[2019-12-24 05:34] LABS: BUN/Creatinine Ratio 17.1 (8-20); C Reactive Protein 42.43 mg/L (<8.01); Calcium 8.6 mg/dL (8.6-10.3); EGFR African American 151.9 (>60); EGFR Non-African American 125.5 (>60); Potassium 4.3 mmol/L (3.5-5.0)
[2019-12-24 07:20] LABS: ABS Eosinophils 0.2 10^3/ul (0-0.6); ABS Lymphocytes 2.7 10^3/ul (1.0-4.8); ABS Monocytes 0.6 10^3/ul (0-0.8); ABS Neutrophils 4.9 10^3/ul (1.5-7.7); Eosinophil % 2.7 %; Lymphocyte % 31.8 %; Nucleated Red Blood Cells % 0.1
[2019-12-24] MEDS: Buprenorp/Nalox 2-0.5 mg SL TB SL SCH ×3 (08:43→21:05)
[2019-12-24] MEDS: Nicotine PATCH 14 MG/24 HR PATCH TRANSDERM SCH (08:44)
[2019-12-24] MEDS: Ondansetron 4 mg VIAL 2 MG/ML 2 ml VIAL IV PRN (09:24)
[2019-12-24] MEDS: Morphine ER 30 mg TAB ** extended release PO SCH ×2 (09:58→21:03)
[2019-12-24] MEDS ORDERED: Vancomycin Trough Check NOTE FOLLOW UP ONE (10:00)
[2019-12-24] MEDS: Vancomycin 1,000 MG in NS 0.9% 250 ml 250 ML IV SCH (18:29)
[2019-12-24] MEDS: Senna TAB 8.6 mg TAB PO SCH (21:03)
[2019-12-24] MEDS: cefTRIAXone 2 GM ADDV.VIAL 2 GM in NS 0.9% 100 ml BAG 100 ML IV SCH (21:09)
[2019-12-25] MEDS: Vancomycin 1,000 MG in NS 0.9% 250 ml 250 ML IV SCH ×3 (00:12→12:55)
[2019-12-25] MEDS: Morphine ER 30 mg TAB ** extended release PO SCH ×2 (09:35→22:10)
[2019-12-25] MEDS: Nicotine PATCH 14 MG/24 HR PATCH TRANSDERM SCH (09:36)
[2019-12-25] MEDS: Buprenorp/Nalox 2-0.5 mg SL TB SL SCH ×3 (09:39→21:00)
[2019-12-25] MEDS: Senna TAB 8.6 mg TAB PO SCH (20:51)
[2019-12-25] MEDS: cefTRIAXone 2 GM ADDV.VIAL 2 GM in NS 0.9% 100 ml BAG 100 ML IV SCH (20:51)
[2019-12-26] MEDS ORDERED: Vancomycin Trough Check NOTE FOLLOW UP ONE (06:00)
[2019-12-26] MEDS ORDERED: HYDROmorphone 1 MG/1 ML SYRINGE ONE ×5 (07:30→10:54)
[2019-12-26] MEDS ORDERED: Ondansetron 4 mg VIAL 2 MG/ML 2 ml VIAL ONE ×2 (07:30→10:05)
[2019-12-26] MEDS ORDERED: Dexamethasone IV 4 MG/ML VIAL 1 ml VIAL ONE (07:30)
[2019-12-26] MEDS ORDERED: Propofol 10 MG/ML 20 ML BTL ONE (07:30)
[2019-12-26] MEDS ORDERED: Lidocaine 2% PF 5 ML VIAL ONE (07:30)
[2019-12-26] MEDS ORDERED: Ketamine HCL 50 mg/ml 10 ml VIAL (500 MG) ONE (07:31)
[2019-12-26] MEDS ORDERED: fentaNYL 100 mcg/2 ml 50 MCG/ML VIAL ONE ×4 (07:31→10:30)
[2019-12-26] MEDS ORDERED: Midazolam 5 mg/5 ml VIAL 1 mg/ml 5 ml VIAL (5 mg) ONE (07:31)
[2019-12-26] MEDS: Buprenorp/Nalox 2-0.5 mg SL TB SL SCH ×3 (07:39→21:13)
[2019-12-26] MEDS: Nicotine PATCH 14 MG/24 HR PATCH TRANSDERM SCH (07:40)
[2019-12-26] MEDS ORDERED: Bupivacaine 0.25% SDV 30 ML ONE (07:58)
[2019-12-26] MEDS ORDERED: Bupivacaine 0.25% EPI 200,000 30 ML SDV ONE (07:58)
[2019-12-26] MEDS ORDERED: Famotidine IV 10 MG/ML 2 ml VIAL (20 mg) IV ONE (08:06)
[2019-12-26] MEDS ORDERED: Famotidine IV 10 MG/ML 2 ml VIAL (20 mg) ONE (08:08)
[2019-12-26] MEDS ORDERED: Ondansetron 4 mg VIAL 2 MG/ML 2 ml VIAL IV PRN (08:11)
[2019-12-26] MEDS ORDERED: Naloxone 0.4 mg VIAL 0.4 mg/ml 1 ml VIAL IV PRN (08:11)
[2019-12-26] MEDS ORDERED: Midazolam 2 mg/2 ml VIAL 1 mg/ml 2 ml VIAL (2 mg) ONE (08:27)
[2019-12-26] MEDS ORDERED: Phenylephrine 40 mcg/mL 10mL (400mcg) SYRINGE ONE (08:46)
[2019-12-26] MEDS ORDERED: Lactated Ringers 1000 ml BAG 1,000 ML IV SCH (09:00)
[2019-12-26] MEDS ORDERED: Labetalol IV 5 MG/ML 20 ml VIAL ONE (09:16)
[2019-12-26] MEDS: Morphine ER 30 mg TAB ** extended release PO SCH ×3 (09:19→22:25)
[2019-12-26] MEDS: fentaNYL 100 mcg/2 ml 50 MCG/ML VIAL IV PRN ×5 (10:06→10:39)
[2019-12-26] MEDS: HYDROmorphone 1 MG/1 ML SYRINGE IV PRN ×4 (10:43→11:12)
[2019-12-26] MEDS ORDERED: Morphine ER 30 mg TAB ** extended release ONE (10:46)
[2019-12-26] MEDS: LR @ 125 MLS/HR IV SCH ×2 (13:33→22:44)
[2019-12-26] MEDS: Morphine ORAL.SOLN 10 mg 2 mg/ml UDC 5 ml (10 mg) PO PRN ×2 (13:47→19:35)
[2019-12-26] MEDS: Senna TAB 8.6 mg TAB PO SCH (21:13)
[2019-12-26] MEDS: cefTRIAXone 2 GM ADDV.VIAL 2 GM in NS 0.9% 100 ml BAG 100 ML IV SCH (21:14)
[2019-12-27] MEDS: Morphine ORAL.SOLN 10 mg 2 mg/ml UDC 5 ml (10 mg) PO PRN ×5 (00:20→23:45)
[2019-12-27] MEDS: LR @ 125 MLS/HR IV SCH (07:01)
[2019-12-27 08:02] LABS: ABS Basophils 0.1 10^3/ul (0-0.2); ABS Eosinophils 0.4 10^3/ul (0-0.6); ABS Lymphocytes 2.4 10^3/ul (1.0-4.8); ABS Monocytes 0.6 10^3/ul (0-0.8); Eosinophil % 4.5 %; Hematocrit 36 % (42-52); Hemoglobin 12.4 g/dL (14.0-18.0); Mean Corpuscular HGB Conc 34 g/dL (31-36); Mean Corpuscular Hemoglobin 29 pg (27-31); Mean Corpuscular Volume 85 fL (80-94); Mean Platelet Volume 6.9 fL (7.4-10.4); Platelet Count 295 10^3/uL (150-450); Red Blood Count 4.23 10^6 /uL (4.18-5.48); Red Cell Distribution Width 15 % (10-15); White Blood Count 8.4 10^3/uL (3.5-10.8)
[2019-12-27] MEDS: Nicotine PATCH 14 MG/24 HR PATCH TRANSDERM SCH (08:11)
[2019-12-27 08:12] LABS: BUN/Creatinine Ratio 16.2 (8-20); C Reactive Protein 10.14 mg/L (<8.01); Calcium 8.4 mg/dL (8.6-10.3); EGFR African American 142.5 (>60); EGFR Non-African American 117.7 (>60); Potassium 4.4 mmol/L (3.5-5.0)
[2019-12-27] MEDS: Morphine ER 30 mg TAB ** extended release PO SCH ×2 (10:12→21:51)
[2019-12-27] MEDS: Buprenorp/Nalox 2-0.5 mg SL TB SL SCH ×3 (10:13→20:38)
[2019-12-27] MEDS: cefTRIAXone 2 GM ADDV.VIAL 2 GM in NS 0.9% 100 ml BAG 100 ML IV SCH (20:37)
[2019-12-27] MEDS: Senna TAB 8.6 mg TAB PO SCH (20:38)
[2019-12-28] MEDS: Buprenorp/Nalox 2-0.5 mg SL TB SL SCH (09:41)
[2019-12-28] MEDS: Nicotine PATCH 14 MG/24 HR PATCH TRANSDERM SCH (09:42)
[2019-12-28] MEDS: Ondansetron 4 mg VIAL 2 MG/ML 2 ml VIAL IV PRN (10:48)
[2019-12-28] MEDS: Morphine ER 30 mg TAB ** extended release PO SCH ×2 (10:49→21:58)
[2019-12-28] MEDS: Morphine ORAL.SOLN 10 mg 2 mg/ml UDC 5 ml (10 mg) PO PRN ×2 (13:28→23:12)
[2019-12-28] MEDS: Senna TAB 8.6 mg TAB PO SCH (20:45)
[2019-12-28] MEDS: cefTRIAXone 2 GM ADDV.VIAL 2 GM in NS 0.9% 100 ml BAG 100 ML IV SCH (20:49)
[2019-12-29 05:11] LABS: ABS Eosinophils 0.3 10^3/ul (0-0.6); ABS Lymphocytes 2.1 10^3/ul (1.0-4.8); ABS Monocytes 0.5 10^3/ul (0-0.8); ABS Neutrophils 2.9 10^3/ul (1.5-7.7); Eosinophil % 5.8 %; Hematocrit 38 % (42-52); Hemoglobin 12.8 g/dL (14.0-18.0); Lymphocyte % 35.3 %; Mean Corpuscular HGB Conc 33 g/dL (31-36); Mean Corpuscular Hemoglobin 29 pg (27-31); Mean Corpuscular Volume 86 fL (80-94); Mean Platelet Volume 7.4 fL (7.4-10.4); Nucleated Red Blood Cells % 0.1; Platelet Count 288 10^3/uL (150-450); Red Blood Count 4.49 10^6 /uL (4.18-5.48); Red Cell Distribution Width 16 % (10-15); White Blood Count 5.8 10^3/uL (3.5-10.8)
[2019-12-29] MEDS: Nicotine PATCH 14 MG/24 HR PATCH TRANSDERM SCH (08:30)
[2019-12-29] MEDS: Buprenorp/Nalox 2-0.5 mg SL TB SL SCH (08:31)
[2019-12-29] MEDS: Ondansetron 4 mg VIAL 2 MG/ML 2 ml VIAL IV PRN (08:37)
[2019-12-29] MEDS: Morphine ER 30 mg TAB ** extended release PO SCH ×2 (10:19→21:30)
[2019-12-29] MEDS: diPHENhydraMINE 25 mg TAB PO PRN ×2 (12:10→21:30)
[2019-12-29] MEDS: Morphine ORAL.SOLN 10 mg 2 mg/ml UDC 5 ml (10 mg) PO PRN (19:32)
[2019-12-29] MEDS: cefTRIAXone 2 GM ADDV.VIAL 2 GM in NS 0.9% 100 ml BAG 100 ML IV SCH (21:29)
[2019-12-29] MEDS: Senna TAB 8.6 mg TAB PO SCH (21:29)
[2019-12-30 06:36] LABS: ABS Eosinophils 0.3 10^3/ul (0-0.6); ABS Lymphocytes 2.2 10^3/ul (1.0-4.8); ABS Monocytes 0.6 10^3/ul (0-0.8); ABS Neutrophils 2.6 10^3/ul (1.5-7.7); Eosinophil % 5.7 %; Hematocrit 37 % (42-52); Hemoglobin 12.9 g/dL (14.0-18.0); Lymphocyte % 38.4 %; Mean Corpuscular HGB Conc 35 g/dL (31-36); Mean Corpuscular Hemoglobin 30 pg (27-31); Mean Corpuscular Volume 86 fL (80-94); Mean Platelet Volume 7.4 fL (7.4-10.4); Nucleated Red Blood Cells % 0.1; Platelet Count 255 10^3/uL (150-450); Red Blood Count 4.33 10^6 /uL (4.18-5.48); Red Cell Distribution Width 15 % (10-15); White Blood Count 5.7 10^3/uL (3.5-10.8)
[2019-12-30 06:49] LABS: BUN/Creatinine Ratio 24.7 (8-20); EGFR African American 128.4 (>60); EGFR Non-African American 106.1 (>60); Potassium 4.3 mmol/L (3.5-5.0)
[2019-12-30] MEDS: Ondansetron 4 mg VIAL 2 MG/ML 2 ml VIAL IV PRN (08:43)
[2019-12-30] MEDS: diPHENhydraMINE 25 mg TAB PO PRN (08:43)
[2019-12-30] MEDS: Morphine ER 30 mg TAB ** extended release PO SCH (08:43)
[2019-12-30] MEDS: Buprenorp/Nalox 2-0.5 mg SL TB SL SCH (08:44)
[2019-12-30] MEDS: Nicotine PATCH 14 MG/24 HR PATCH TRANSDERM SCH (08:49)
[2019-12-30 15:17] VITALS: BP 138/89
== END 2019-12-30 16:45 | disposition home or self-care (01) | DRG 710 ==
LOC: ED 16:11 → OR 21:13 → SSU 23:32
PROVIDERS: ADMIT Nurse Practitioner; ATTEND Internal Medicine